=== PATIENT | female | born 1990 | race Caucasian/White ===

== ENCOUNTER 2017-01-21 11:55 | Emergency (ER) | payer OTHER ==
[2017-01-21 12:42] LABS: BASOPHILS 0.1 % (0-2); EOSINOPHILS 0.1 % (0-7); HEMATOCRIT 39.6 % (36.0-48.0); HEMOGLOBIN 13.4 g/dL (12-16); IMMATURE GRANULOCYTES 0.3 % (0-5); LYMPHOCYTES 7.4 % (15-50); MCH 31.2 pg (26.0-34.0); MCHC 33.8 g/dL (31.0-37.0); MCV 92.1 fL (80.0-100.0); MEAN PLATELET VOLUME 9.9 fL (7.4-10.4); MONOCYTES 5.6 % (2-11); NEUTROPHILS 86.5 % (40-80); PLATELET COUNT 198 10x3/uL (130-400); RDW 12.8 % (11.5-14.5); WBC 11.9 10x3/uL (4.8-10.8)
[2017-01-21 12:59] LABS: ALBUMIN 4.2 g/dL (3.4-5.0); ALKALINE PHOSPHATASE 41 U/L (46-116); ALT (SGPT) 15 U/L (10-68); BILIRUBIN - TOTAL 1.06 mg/dL (0.2-1.3); CALC OSMOLALITY 270 mosm/kg (275-300); CALCIUM 9.3 mg/dL (8.5-10.1); CARBON DIOXIDE 25.5 mmol/L (21.0-32.0); CHLORIDE - SERUM 101 mmol/L (98-107); CREATININE - SERUM 0.8 mg/dL (0.6-1.3); GLUCOSE 106 mg/dL (74-106); PROTEIN - SERUM 7.9 g/dL (6.4-8.2); SODIUM 136 mmol/L (136-145); UREA NITROGEN 11 mg/dL (7-18); eGFR NON AFRICAN AMERICAN > 90 mL/min (90-120)
[2017-01-21 13:52] LABS: AMYLASE - SERUM 55 U/L (25-115); LIPASE 183 U/L (73-393)
[2017-01-21 14:19] LABS: HCG URINE NEGATIVE (NEGATIVE)
[2017-01-21 14:53] LABS: APPEARANCE CLEAR (CLEAR); BILIRUBIN NEGATIVE (NEGATIVE); COLOR DK YELLOW (YELLOW); GLUCOSE NEGATIVE (NEGATIVE); KETONE NEGATIVE (NEGATIVE); NITRITE NEGATIVE (NEGATIVE); PROTEIN TRACE mg/dL (NEGATIVE); SPECIFIC GRAVITY 1.015 (1.005-1.020); UROBILINOGEN NORMAL (NORMAL)
[2017-01-21 14:54] LABS: BACTERIA FEW /hpf (NONE SEEN); EPITHELIAL CELLS 0-5 /hpf (0-5); RED CELLS - URINE 25-50 /hpf (0-5); WHITE CELLS - URINE 0-5 /hpf (0-5)
== END 2017-01-21 16:20 | disposition home or self-care (01) ==
LOC: D.ER 11:55
PROVIDERS: Emergency Medicine; Nurse Practitioner Family
DX: E86.0 Dehydration (principal); R53.83 Other fatigue

== ENCOUNTER → 2018-08-18 15:57 | Outpatient (CLI) | payer SELFPAY ==
[~2018-08-18 15:57] MED LIST: HYDROCODON-ACE1 EAC7 PO; MOTRIN600 MG PO; PRENAVITE1 TAB PO; UNISOM SLEEP AI25 MG PO; ZPAK PO
[2018-08-24 23:36] VITALS: BMI 23.8
== END | disposition home or self-care (01) ==
LOC: D.LDO 15:57
PROVIDERS: ATTEND Obstetrics & Gynecology
DX: O36.8190 Decreased fetal movements, unspecified trimester, not applicable or unspecified (principal); Z3A.00 Weeks of gestation of pregnancy not specified

== ENCOUNTER 2018-08-20 02:55 | Inpatient (IN) | payer OTHER ==
[2018-08-20 03:46] VITALS: BP 111/59; BMI 26.4
[2018-08-20] MEDS ORDERED: PRENAVITE1 TAB PO (04:22)
[2018-08-20] MEDS ORDERED: UNISOM SLEEP AI25 MG PO (04:26)
[2018-08-20 05:06] LABS: APPEARANCE CLEAR (CLEAR); BILIRUBIN NEGATIVE (NEGATIVE); COLOR YELLOW (YELLOW); GLUCOSE NEGATIVE (NEGATIVE); KETONE NEGATIVE (NEGATIVE); NITRITE NEGATIVE (NEGATIVE); PROTEIN NEGATIVE (NEGATIVE); UROBILINOGEN NORMAL (NORMAL)
[2018-08-20 05:07] LABS: HEMOGLOBIN 13.1 g/dL (12-16); MCH 30.9 pg (26.0-34.0); MCHC 33.6 g/dL (31.0-37.0); MEAN PLATELET VOLUME 11.7 fL (7.4-10.4); RBC 4.24 10x6/uL (4.00-5.40); RDW 13.7 % (11.5-14.5); WBC 9.3 10x3/uL (4.8-10.8)
[2018-08-20 05:14] LABS: UDS - AMPHET NEGATIVE QUAL (NEGATIVE); UDS - BARB NEGATIVE QUAL (NEGATIVE); UDS - BENZO NEGATIVE QUAL (NEGATIVE); UDS - COCAINE NEGATIVE QUAL (NEGATIVE); UDS - OPIATE NEGATIVE QUAL (NEGATIVE); UDS - PCP NEGATIVE QUAL (NEGATIVE); UDS - THC NEGATIVE QUAL (NEGATIVE)
[2018-08-20 17:04] LABS: BASOPHILS 0.1 % (0-2); EOSINOPHILS 0.1 % (0-7); HEMATOCRIT 32.5 % (36.0-48.0); HEMOGLOBIN 10.8 g/dL (12-16); IMMATURE GRANULOCYTES 0.4 % (0-5); LYMPHOCYTES 5.8 % (15-50); MCH 30.9 pg (26.0-34.0); MCHC 33.2 g/dL (31.0-37.0); MCV 92.9 fL (80.0-100.0); MEAN PLATELET VOLUME 11.2 fL (7.4-10.4); MONOCYTES 6.1 % (2-11); NEUTROPHILS 87.5 % (40-80); PLATELET COUNT 121 10x3/uL (130-400); RDW 13.7 % (11.5-14.5)
[2018-08-20 17:48] LABS: WBC 19.7 10x3/uL (4.8-10.8)
[2018-08-20 20:36] LABS: BASOPHILS 0.1 % (0-2); EOSINOPHILS 0.1 % (0-7); HEMATOCRIT 30.4 % (36.0-48.0); HEMOGLOBIN 10.1 g/dL (12-16); IMMATURE GRANULOCYTES 0.3 % (0-5); LYMPHOCYTES 8.8 % (15-50); MCH 30.7 pg (26.0-34.0); MCHC 33.2 g/dL (31.0-37.0); MCV 92.4 fL (80.0-100.0); MEAN PLATELET VOLUME 11.1 fL (7.4-10.4); MONOCYTES 6.4 % (2-11); NEUTROPHILS 84.3 % (40-80); PLATELET COUNT 129 10x3/uL (130-400); RBC 3.29 10x6/uL (4.00-5.40); RDW 13.6 % (11.5-14.5)
--- NOTE | 2018-08-20 20:47 | NUR ---
RN TO BEDSIDE TO ADMINISTER PAIN MEDICATION FOR PT C/O DISCOMFORT. PT IN SEMI FOWLERS POSITION INFANT. REQUESTS TO COMPLETE BEFORE TAKING PAIN MEDS, INSTRUCTED PT TO NOTIFY RN WHEN SHE COMPLETED AND WAS READY FOR PAIN MEDICATION, VERBALIZES UNDERSTANDING. CALL LIGHT WITHIN REACH. FAMILY MEMBERS REMAIN AT BEDSIDE. BED IN LOW POSITION WITH UPPER SIDE RAILS RAISED X2. CALL LIGHT AND PHONE WITHIN REACH. WILL CONTINUE TO MONITOR AND ASSIST PRN.
--- NOTE | 2018-08-20 21:06 | NUR ---
REPORTS THAT SHE IS FINISHED . C/O PAIN 11/27, VAGINAL "SORENESS." NORCO 10/325MG GIVEN PER ORDER AND PT REQUEST. DENIES ADDITIONAL NEEDS. IN GRANDMOTHER'S ARMS AT THIS TIME. PT RESTING IN BED. SCD'S ON BLE. BED IN LOW POSITION WITH UPPER SIDE RAILS RAISED X2. CALL LIGHT AND PHONE WITHIN REACH. WILL CONTINUE TO MONITOR AND ASSIST PRN.
--- NOTE | 2018-08-20 23:20 | NUR ---
PT MOVED TO ROOM 1273 FOR CARE.
--- NOTE | 2018-08-20 23:43 | NUR ---
PTS IV FLUSHED WITH 10ML NS AT THIS TIME AND SALINE LOCKED.
[2018-08-21] VITALS (15 sets, daily range): BP systolic 93–160; BP diastolic 48–74
--- NOTE | 2018-08-21 02:50 | NUR ---
PATIENT LYING IN BED, REQUESTING HER PHONE ACCOUNTING SOFTWARE SPECIALIST. PT HANDED HER PURSE AND ACCOUNTING SOFTWARE SPECIALIST PLUGGED IN BEHIND THE BED PER REQUEST. PERICARE PERFORMED AT THIS TIME, PAD WEIGHED AT 32 GRAMS. FRESH ICE PACK PLACED. ICE WATER PROVIDED PER REQUEST. CROFT EMPTIED, SEE I&O. PT DENIES OTHER NEEDS, BED REMAINS LOCKED IN LOW POSITION, SIDE RAILS UPX2, CALL ANN AND TRAY TABLE IN REACH AND FAMILY REMAINS AT BEDSIDE FOR SUPPORT.
--- NOTE | 2018-08-21 02:50 | NUR ---
massaged pts fundus, noted to be midline,firm,u-1
--- NOTE | 2018-08-21 03:45 | NUR ---
PT ASSISTED WITH BY MOJGANRN
--- NOTE | 2018-08-21 04:12 | NUR ---
PTS MOTHER IN LAW TO DESK REQUESTING MAGALY TO COME HELP THEM WITH THE BABY. MAGALY CALLED IN THE NURSERY AND INFORMED OF PT REQUEST.
[2018-08-21 06:12] LABS: RAPID PLASMA REAGIN Non Reactive (Non Reactive)
[2018-08-21 06:27] LABS: BASOPHILS 0.1 % (0-2); EOSINOPHILS 0.9 % (0-7); HEMATOCRIT 31.1 % (36.0-48.0); HEMOGLOBIN 10.4 g/dL (12-16); IMMATURE GRANULOCYTES 0.4 % (0-5); LYMPHOCYTES 19.3 % (15-50); MCH 30.5 pg (26.0-34.0); MCHC 33.4 g/dL (31.0-37.0); MCV 91.2 fL (80.0-100.0); MEAN PLATELET VOLUME 11.3 fL (7.4-10.4); MONOCYTES 7.5 % (2-11); NEUTROPHILS 71.8 % (40-80); PLATELET COUNT 110 10x3/uL (130-400); RBC 3.41 10x6/uL (4.00-5.40); RDW 14.7 % (11.5-14.5); WBC 14.1 10x3/uL (4.8-10.8)
--- NOTE | 2018-08-21 06:30 | NUR ---
PATIENTS PAD CHANGED AND WEIGHED AT 32 GRAMS. CROFT CATHETER WITH 350 ML NOTED IN THE CHAMBER. PT SITTING UP IN BED, INFANT IN GRANDMOTHERS ARMS. NO NEEDS IDENTIFIED AT THIS TIME.
--- NOTE | 2018-08-21 07:15 | NUR ---
DR DIEHL IN TO SEE PATIENT AT THIS TIME, VAGINAL PACKING REMOVED, FUNDAL MASSAGE DONE. PT CONTINUES TO HAVE VAGINAL BLEEDING, ORDER NOTED TO OBTAIN CONSENT AND CALL OR CREW FOR REPAIR.
--- NOTE | 2018-08-21 07:18 | NUR ---
CELINA, MORTAR MAKER NOTIFIED OF NEED FOR STAT NEED FOR OR CREW AND THAT PT WAS ACTIVELY BLEEDING. REPORTS THAT SHE WILL CALL CREW IN.
--- NOTE | 2018-08-21 07:22 | NUR ---
consents for repair vag laceration signed per pt- states understanding.
--- NOTE | 2018-08-21 07:27 | NUR ---
PADMA STORM SASH MAKER NOTIFIED OF PT ACTIVELY BLEEDING AND NEED FOR SURGERY NOW.
--- NOTE | 2018-08-21 07:35 | NUR ---
2nd iv started lt wrist per marguerite hernandez rn. unit prbc B+- donor number-[id number] HUNG AND INFUSING INTO LT WRIST AT 75CC/HR PER PUMP.
--- NOTE | 2018-08-21 07:38 | NUR ---
no blood on pad at this time.
--- NOTE | 2018-08-21 07:41 | NUR ---
pt states is stinging- vag area. verbal responses appro to questions. poc discussed with pt and family.
--- NOTE | 2018-08-21 07:45 | NUR ---
unit prbc rate increased to 300cchr/pump.
--- NOTE | 2018-08-21 07:47 | NUR ---
raudel majano in room talking with ptMaynor
--- NOTE | 2018-08-21 08:02 | NUR ---
no s/s of transfusion noted.
--- NOTE | 2018-08-21 08:12 | NUR ---
250cc emptied from macias cath.
--- NOTE | 2018-08-21 08:15 | NUR ---
suellen starks crna in room along with rn. meds given iv per suellen starks crna.
--- NOTE | 2018-08-21 08:20 | NUR ---
to or via bed.
--- NOTE | 2018-08-21 10:02 | NUR ---
returns to room via bed. report received from rr nurse. pt drowsy but will respond to persistent verbal stimuli. states is tired. iv infusing into rt wrist lr at 125cc/hr. saline lock to lt wrist. vs done. abd soft with fundus uu. no lochia noted at this time. jann pad placed. macias cath intact clear urine return. scd's on legs returned to pump. family at bedside.
--- NOTE | 2018-08-21 10:29 | NUR ---
sips of ice water given per request. pt coughs and co sore throat. explained that had to intubate for general anesthesia.
--- NOTE | 2018-08-21 10:47 | NUR ---
spoke with suellne starks crna about pt feeling like she is aspirating - informed not appear any resp distress and o2 sat 99 to 100%. order for ice chips. suellen starks crna states will be here to see pt as soon as he is finished with case.
--- NOTE | 2018-08-21 10:56 | NUR ---
no lochia noted on padMaynor starks crna in room talking to pt and family.
--- NOTE | 2018-08-21 11:10 | NUR ---
RINGS CALL LIGHT- PT REQUESTING A COLD DESSERT. EXPLAINED THAT ANESTHESIA WANTS HER TO BE SWOLLING ICE CHIPS WELL. PT STATES SHE IS HUNGRY. ICE CREAM GIVEN PER PT AND FAMILY REQUEST.
--- NOTE | 2018-08-21 11:15 | NUR ---
ice cap to perineum - no lochia -bleeding on jann pad.
--- NOTE | 2018-08-21 11:30 | NUR ---
sitting up in bed eating ice cream. states throat feels a little better.
--- NOTE | 2018-08-21 11:47 | NUR ---
lab here for blood draw.
[2018-08-21 11:53] LABS: BASOPHILS 0.1 % (0-2); EOSINOPHILS 0.3 % (0-7); HEMATOCRIT 32.2 % (36.0-48.0); HEMOGLOBIN 10.8 g/dL (12-16); IMMATURE GRANULOCYTES 0.4 % (0-5); LYMPHOCYTES 9.9 % (15-50); MCH 30.4 pg (26.0-34.0); MCHC 33.5 g/dL (31.0-37.0); MCV 90.7 fL (80.0-100.0); MEAN PLATELET VOLUME 11.1 fL (7.4-10.4); MONOCYTES 3.7 % (2-11); NEUTROPHILS 85.6 % (40-80); PLATELET COUNT 107 10x3/uL (130-400); RBC 3.55 10x6/uL (4.00-5.40); RDW 14.7 % (11.5-14.5); WBC 14.5 10x3/uL (4.8-10.8)
--- NOTE | 2018-08-21 11:59 | NUR ---
sitting up in bed putting on makeup- states she is feeling better. jann pad changed- small clearish pale yellow fluid noted on pad- no blood noted.
--- NOTE | 2018-08-21 12:15 | NUR ---
results of [facility] phoned to dr bolden.
--- NOTE | 2018-08-21 12:28 | NUR ---
lab here. bp rechecked. pt states that the cuff kept pumping up then repumping from last bp taken. recheck bp 116/56
--- NOTE | 2018-08-21 12:31 | NUR ---
eating reg diet- states is doing ok- denies needs.
--- NOTE | 2018-08-21 12:50 | NUR ---
ate 70% of reg diet- tolerated well.
--- NOTE | 2018-08-21 12:50 | NUR ---
rings call light- requesting pain medication- rates pain a 2-3 on scale of 0-10. med given.
[2018-08-21 12:52] LABS: APTT 30.6 SECONDS (22.8-39.4); PROTIME 12.7 SECONDS (11.6-15.0)
--- NOTE | 2018-08-21 13:21 | NUR ---
rings call light- states that feels like she needs to have a bm. no lochia noted.pt states wants to walk to bathroom. pt ambulates to bathroom- tolerated well. no bm. perineal area cleansed- returns to bed.
--- NOTE | 2018-08-21 13:35 | NUR ---
results of pt and ptt to dr bolden- new orders received.
--- NOTE | 2018-08-21 14:00 | NUR ---
CROFT CATH REMOVED POST BULB DEFLATED WITH 1500CC URINE IN BAG. PT REQUESTS TO GET UP TO BATHROOM- STATES THAT FEELS LIKE NEEDS TO HAVE BM AND JUST WANTS TO SIT ON COMMODE FOR A BIT.
--- NOTE | 2018-08-21 14:10 | NUR ---
PT STATES THAT SHE IS DOING FINE IN BATHROOM AND WANTS SOME PRIVACY IN ROOM. PT STATES THAT SHE WILL PULL BATHROOM CORD IF NEEDS NURSE.
--- NOTE | 2018-08-21 14:30 | NUR ---
PT STATES HAS PASSED SOME GAS. PERICARE DONE USING BETADINE AND WARM WATER- WHILE USING WARM WATER AND BETADINE- PT VOIDS MOD AMT. PT INSTRUCTED ON DERMAPLAST AND TUCKS PADS. GOWN CHANGED. PT STATES SHE DOES NOT WANT TO SHOWER AT THIS TIME. AMBULATES TO BED. STATES SHE AND WOULD LIKE TO REST. BABY TO NURSERY- LIGHTS IN ROOM DIMMED.
--- NOTE | 2018-08-21 15:37 | NUR ---
ENTERED ROOM- SITTING UP IN BED LOOKING AT LAPTOP. VS DONE- BABY BROUGHT TO ROOM.
--- NOTE | 2018-08-21 17:29 | NUR ---
sitting up in bed eating dinner. denies needs. denies pain at this time. scant lochia noted on pad. at bedside.
--- NOTE | 2018-08-21 18:21 | NUR ---
UP TO BATHROOM- 1000CC URINE. PERICARE DONE. TOLERATED WELL.
--- NOTE | 2018-08-21 19:19 | NUR ---
PATIENT RECEIVED SITTING UP IN BED, AT BEDSIDE IN OPEN CRIB. JULIA DEXTER COMPLETING HER ASSESSMENT. PT ASSESSMENT COMPLETED AT THIS TIME. SEE FLOWSHEET. VS WNL, FUNDUS FIRM/ML/U-1, BLEEDING SCANT, PERINEUM SWOLLEN BUT PT DECLINES ICE PACK. MOTRIN ADMINISTERED SEE EMAR. PT WITH TWO SALINE LOCKS, BOTH FLUSHED WITH 5 ML NS WITHOUT INCIDENT, COLACE AND CHLORASEPTIC SPRAY PROVIDED PER MD ORDERS. BED REMAINS LOCKED IN LOW POSITION, SIDE RAILS UPX2, CALL ANN AND TRAY TABLE IN REACH. FRESH ICE WATER PROVIDED AND PT DENIES OTHER NEEDS AT THIS TIME. FAMILY REMAINS AT BEDSIDE FOR SUPPORT. WILL CONTINUE TO MONITOR.
--- NOTE | 2018-08-21 21:30 | NUR ---
PT SITTING UP IN BED HOLDING , DENIES PAIN OR NEEDS AT THIS TIME.
--- NOTE | 2018-08-21 22:12 | NUR ---
INFANT IN HIGH FOWLERS POSITION. STATES PAIN 04/29, DENIES NEED FOR INTERVENTION. FAN PROVIDED PER REQUEST. DENIES ADDITIONAL NEEDS. FAMILY MEMBERS REMAIN AT BEDSIDE, SUPPORTIVE AND ATTENTIVE TO PT AND NEEDS. BED IN LOW POSITION WITH UPPER SIDE RAILS RAISED X2. CALL LIGHT AND PHONE WITHIN REACH. WILL CONTINUE TO MONITOR AND ASSIST PRN.
--- NOTE | 2018-08-22 00:11 | NUR ---
SITTING IN HIGH FOWLERS POSITION IN BED CONVERSING AND LAUGHING WITH FAMILY. ROOM TEMP DECREASED PER PT REQUEST. SPOUSE AT BEDSIDE CHANGING INFANT'S DIAPER. ICE WATER AND SPRITE PROVIDED PER PT REQUEST. DENIES PAIN AND ADDITIONAL NEEDS. BED IN LOW POSITION WITH UPPER SIDE RAILS RAISED X2. CALL LIGHT AND PHONE WITHIN REACH. WILL CONTINUE TO MONITOR AND ASSIST PRN.
--- NOTE | 2018-08-22 00:53 | NUR ---
CALLS VIA CALL LIGHT. REQUESTS BOTTLE FOR INFANT, PROVIDED PER REQUEST. CONCERNED THAT HER THROAT IS SORE AND SHE IS "COUGHING OCCASIONALLY." STATES THAT SHE HAS NOT USED CHLOROSEPTIC SPRAY, ENCOURAGED HER TO USE SPRAY ORDERED, STATES THAT SHE WILL TRY IT. EDUCATED THAT LONG COUGH ISN'T PRODUCTIVE IT IS NORMAL TO COUGH FOLLOWING PROCEDURES. VERBALIZES UNDERSTANDING. TEMP CHECKED PER REQUEST, 98.4 ORALLY. BED IN LOW POSITION WITH UPPER SIDE RAILS RAISED X2. CALL LIGHT AND PHONE WITHIN REACH.
--- NOTE | 2018-08-22 02:54 | NUR ---
RESTING QUIETLY ON LEFT SIDE. RESPIRATIONS REGULAR AND UNLABORED, NO S/S OF DISTRESS NOTED. BED IN LOW POSITION WITH UPPER SIDE RAILS RAISED X2. CALL LIGHT AND PHONE WITHIN REACH. WILL CONTINUE TO MONITOR AND ASSIST PRN.
--- NOTE | 2018-08-22 05:03 | NUR ---
SITTING IN HIGH FOWLERS POSITION. REPORTS THAT SHE JUST COMPLETED . REQUESTS MOTRIN, PAIN 04/29, PERINEAL AND VAGINAL "SORENESS." REPORTS THAT SHE IS PERFORMING PERICARE WITH EACH VOID USING PERIBOTTLE AND BETADINE WASH AND TUX PADS. ICE WATER PROVIDED. DENIES ADDITIONAL NEEDS. UP TO VOID. BED IN LOW POSITION WITH UPPER SIDE RAILS RAISED X2. CALL LIGHT AND PHONE WITHIN REACH. WILL CONTINUE TO MONITOR AND ASSIST PRN.
--- NOTE | 2018-08-22 05:53 | NUR ---
DR. DIEHL AT BEDSIDE DISCUSSING PLAN OF CARE AND DISCHARGE INSTRUCTIONS WITH PT.
--- NOTE | 2018-08-22 06:03 | NUR ---
DENIES PAIN. L WRIST PIV REMOVED, TIP INTACT, BANDAID APPLIED. R WRIST PIV REMOVED, TIP INTACT, BANDAID PLACED OVER INSERTION SITE. DENIES NEEDS AT THIS TIME. QUESTIONS REGARDING HOW TO SCHEDULE FOLLOW UP APPOINTMENT WITH [facility] ANSWERED. BED IN LOW POSITION WITH UPPER SIDE RAILS RAISED X2. CALL LIGHT AND PHONE WITHIN REACH. WILL CONTINUE TO MONITOR AND ASSIST PRN.
[2018-08-22 07:18] VITALS: BP 108/59
--- NOTE | 2018-08-22 07:18 | NUR ---
RECEIVED PT SITTING UP IN BED. AWAKE. AAO X 3. VSS. HRRR WITHOUT AUDIBLE MURMUR. BBS CLEAR. BS X 4. ABDOMEN SOFT/NON-DISTENDED. FUNDUS FIRM AT U/2. RUBRA LOCHIA SCANT AMT. NO CLOTS OR HEAVY BLEEDING PER PT STATES. NEG HOMANS' SIGN. PPP. NO EDEMA NOTED TO BLE. SLIGHT EDEMA NOTED TO LABIA/PERINEUM. PT DENIES C/O PAIN OR NEEDS. SR UP X2. CALL LIGHT IN REACH.
--- NOTE | 2018-08-22 09:00 | NUR ---
PT LYING SUPINE IN BED. EYES CLOSED. RESP NON-LABORED. PT NOT DISTURBED TO ALLOW FOR REST.
--- NOTE | 2018-08-22 10:30 | NUR ---
PT AMBULATORY IN ROOM. PREPARING FOR DISCHARGE. DENIES C/O OR NEEDS.
[2018-08-22] MEDS ORDERED: ZPAK PO (10:57)
[2018-08-22] MEDS ORDERED: HYDROCODON-ACE1 EAC7 PO (10:57)
[2018-08-22] MEDS ORDERED: MOTRIN600 MG PO (10:58)
--- NOTE | 2018-08-22 11:50 | NUR ---
DISCHARGE INSTRUCTIONS GIVEN TO PT. PT VERALIZES UNDERSTANDING OF ALL INSTRUCTIONS. COPIES GIVEN TO PT. RX FOR Z-PACK, NORCO 5/325 AND MOTRIN 600 GIVEN TO PT. ALL QUESTIONS ANSWERED. PT PREPARES FOR DISCHARGE.
--- NOTE | 2018-08-22 12:45 | NUR ---
PT READY FOR DISCHARGE. DISCHARGED IN STABLE CONDITION VIA WHEELCHAIR TO PRIVATE VEHICLE. SECURED PER FAMILY IN CARSEAT.
--- NOTE | 2018-08-31 13:55 | OP ---
PATIENT NAME: ZHENG RUBIO MEDICAL RECORD: [id number] :90 LOCATION:[id number] ADMISSION DATE:08/20/18 SURGEON: TOBIAS RIOS MD DATE OF OPERATION: 08/21/2018 PREOPERATIVE DIAGNOSES: 1. Vaginal lacerations status post vaginal delivery. 2. Hemorrhage. POSTOPERATIVE DIAGNOSES: 1. Vaginal lacerations status post vaginal delivery. 2. Hemorrhage. PROCEDURE: Repair of vaginal lacerations. SURGEON: Tobias Rios MD ANESTHESIA: General via LMA. INTRAVENOUS FLUIDS: Per anesthesia record. ESTIMATED BLOOD LOSS: Approximately 150 cc during the surgical procedure. SPECIMENS: None. FINDINGS: Multiple areas of vaginal laceration extending all the way from the vaginal introitus to the fornix of the posterior cervix. COMPLICATIONS: None apparent. PROCEDURE IN DETAIL: The patient was taken to the operating room where regional anesthesia using the epidural catheter was found to be inadequate and was converted to a general case. The patient was then prepped and draped in normal sterile fashion in the dorsal lithotomy position in the [facility]. A Bustillos catheter was in place and draining freely. At this point, attention was turned to the vagina, where careful survey of the previous day's repair was performed. The perineal repair was found to be intact and hemostatic. Attention was then turned to the vagina where multiple areas of bleeding were noted and repaired with [id number] sutures using a 2-0 Vicryl. Of note, the vaginal mucosa was noted to be detached and cranially displaced and multiple attempts were made using the 2-0 Vicryl sutures to reapproximate the vaginal mucosa with the introitus. After several areas were oversewn, good hemostasis was noted. Monsel solution was placed under the surgical sites. The patient tolerated the procedure well and was found to be hemostatic upon ending the case. The patient was transferred to postanesthesia recovery stable without incident. TRANSINT:[id number] Voice Confirmation ID: [id number] DOCUMENT ID: [id number] OPERATIVE REPORT [id number] JOANNEZHENG SHANITA, TOBIAS Sheth MD at 1355 CC: [id number] DICTATION DATE: 08/27/18 1328 TRANSPLANT WORKER: 08/27/18 1435 DIS IN 08/22/18 [address] [place] [address]
--- NOTE | 2018-12-08 11:41 | DS ---
PATIENT:ZHENG RUBIO :90 MEDICAL RECORD: [id number] DISCHARGE SUMMARY ADMISSION DATE: 08/20/18 DISCHARGE DATE: 08/22/18 HOSPITAL COURSE: The patient was admitted on 08/20/2018. HISTORY OF PRESENT ILLNESS: A 28-year-old G1, P0 at 38 weeks and 4 days, admitted at term with spontaneous rupture of membranes. The patient noted to be B positive, group B strep negative, and rubella immune. PAST MEDICAL HISTORY: Significant for asthma. PAST SURGICAL HISTORY: Significant for dental surgery. ALLERGIES: The patient reported no allergies. MEDICATIONS: Included vitamins and Unisom. FAMILY HISTORY: The patient reported no significant family history. SOCIAL HISTORY: The patient reported social history negative times 3. PHYSICAL EXAMINATION: On initial assessment, vital signs are stable. The patient was normotensive and afebrile. LUNGS: Clear to auscultation. CARDIOVASCULAR: Regular rate and rhythm. PELVIC: Uterus was appropriately sized and nontender. EXTREMITIES: Lower extremities were free of Homans sign, erythema, or swelling. wellbeing was reassuring with category 1 tracing. The patient noted to be shi. LABORATORY DATA: Admission hemoglobin was found to be 13.1. ASSESSMENT AND PLAN: 1. Admission, term intrauterine at 38 weeks. 2. Spontaneous rupture of membranes. 3. care in [place]. 4. Mild intermittent asthma. Pitocin induction of labor was started. Antibiotics were given for initial unknown group B strep status, but were stopped. records were obtained. The patient was found to be group B strep negative. The patient progressed to the second stage of labor and had a normal spontaneous vaginal delivery with severe vaginal lacerations of hemorrhage approximately 800 cc. The delivery note is as on the chart. Following extensive repair, a packing was placed into the vagina. Later during day #0, I was called for approximately 300 cc of blood loss from the vaginal pack on the exam. No blood was noted to be actively coming from the pack. Blood loss that time was calculated to be approximately 1200 cc including delivery. A CBC was sent and blood was placed on hold. Vital signs at that time were stable. The patient was counseled at that time for the possible need for surgical intervention to correct the vaginal lacerations. The patient continued to have bleeding and the pack was removed and areas of active bleeding were noted in the vagina. At that point, the patient was taken to the operating room where repair of vaginal lacerations were performed under DISCHARGE SUMMARY REPORT [id number] ZHENG RUBIO anesthesia with good hemostasis noted. A second packing was placed. Blood loss at that point from delivery was found to be approximately 1500 cc. The patient was transfused 2 units of packed red blood cells and remained hemodynamically stable at all times. Following the repair approximately 15 minutes, the site was found to be hemostatic. The patient transported back to labor and delivery. The patient did well overnight on and postoperative day #1. On the morning of post day #1, the pack had been removed in the operating room as no bleeding was noted. Minimal lochia was noted overnight. Vital signs remained stable and hemoglobin was found to be appropriate for blood loss and transfusion. Bustillos catheter had been left in overnight and the patient had been on a clear liquid diet. The patient was advanced to p.o. pain meds and general diet at that time. Bustillos catheter was removed and ambulation begun. The patient continued to improve on postop/ day #1. On the morning of day #2, the bleeding still remained scant from the surgical correction site. Blood counts found to be stable and the patient is discharged home with plans to follow up the next week for vaginal inspection. TRANSINT:[id number] Voice Confirmation ID: [id number] DOCUMENT ID: [id number] MARTIN DIEHL MD at 1141 CC: [id number] DICTATION DATE: 12/05/18 0929 HOSPITALITY DIRECTOR: 12/05/18 2157 DIS IN 08/22/18 [address] [place] [address]
== END 2018-08-22 12:45 | disposition home or self-care (01) | DRG 768 ==
LOC: D.LDO 02:55 → D.LD 03:21
PROVIDERS: Obstetrics & Gynecology; ADMIT Obstetrics & Gynecology; ATTEND Obstetrics & Gynecology
PROC: 10E0XZZ Delivery of Products of Conception, External Approach (ICD-10-PCS; principal; 2018-08-20)
PROC: 0KQM0ZZ Repair Perineum Muscle, Open Approach (ICD-10-PCS; 2018-08-20)
PROC: 0W3R7ZZ Control Bleeding in Genitourinary Tract, Via Natural or Artificial Opening (ICD-10-PCS; 2018-08-21)
DX: O71.4 Obstetric high vaginal laceration alone (principal); Z37.0 Single live birth; O72.1 Other immediate postpartum hemorrhage; Z3A.38 38 weeks gestation of pregnancy

== ENCOUNTER 2018-08-24 23:32 | Emergency (ER) | payer OTHER ==
[~2018-08-24] VITALS: Ht 157.5 cm; Wt 59.1 kg
[2018-08-24 23:36] VITALS: Ht 157.5 cm; Wt 59.1 kg
[2018-08-25 00:02] LABS: BASOPHILS 0.1 % (0-2); EOSINOPHILS 2.8 % (0-7); HEMATOCRIT 34.3 % (36.0-48.0); HEMOGLOBIN 11.6 g/dL (12-16); IMMATURE GRANULOCYTES 0.3 % (0-5); LYMPHOCYTES 30.9 % (15-50); MCH 30.6 pg (26.0-34.0); MCHC 33.8 g/dL (31.0-37.0); MCV 90.5 fL (80.0-100.0); MEAN PLATELET VOLUME 9.6 fL (7.4-10.4); MONOCYTES 6.6 % (2-11); NEUTROPHILS 59.3 % (40-80); RBC 3.79 10x6/uL (4.00-5.40); WBC 8.8 10x3/uL (4.8-10.8)
[2018-08-25 00:11] LABS: PLATELET COUNT 210 10x3/uL (130-400)
[2018-08-25 00:18] LABS: ALBUMIN 2.7 g/dL (3.4-5.0); ALKALINE PHOSPHATASE 95 U/L (46-116); ALT (SGPT) 37 U/L (10-68); BILIRUBIN - TOTAL 0.51 mg/dL (0.2-1.3); CALC OSMOLALITY 275 mosm/kg (275-300); CALCIUM 8.6 mg/dL (8.5-10.1); CARBON DIOXIDE 23.3 mmol/L (21.0-32.0); CHLORIDE - SERUM 104 mmol/L (98-107); CREATININE - SERUM 0.5 mg/dL (0.6-1.3); GLUCOSE 110 mg/dL (74-106); POTASSIUM - SERUM 3.7 mmol/L (3.5-5.1); PROTEIN - SERUM 6.7 g/dL (6.4-8.2); SODIUM 138 mmol/L (136-145); UREA NITROGEN 9 mg/dL (7-18); eGFR NON AFRICAN AMERICAN > 90 mL/min (90-120)
[2018-08-25 01:31] VITALS: BP 125/74
== END 2018-08-25 01:42 | disposition home or self-care (01) ==
LOC: D.ER 23:32
PROVIDERS: Family Medicine
DX: O90.89 Other complications of the puerperium, not elsewhere classified (principal); N93.9 Abnormal uterine and vaginal bleeding, unspecified

== ENCOUNTER 2018-08-30 00:57 | Observation (INO) | payer OTHER ==
[~2018-08-30] VITALS: Ht 157.5 cm; Wt 56.8 kg
[2018-08-30 01:26] LABS: BASOPHILS 0.1 % (0-2); HEMATOCRIT 37.1 % (36.0-48.0); HEMOGLOBIN 12.5 g/dL (12-16); IMMATURE GRANULOCYTES 0.2 % (0-5); LYMPHOCYTES 37.1 % (15-50); MCH 30.6 pg (26.0-34.0); MCHC 33.7 g/dL (31.0-37.0); MCV 90.9 fL (80.0-100.0); MEAN PLATELET VOLUME 9.2 fL (7.4-10.4); MONOCYTES 9.6 % (2-11); PLATELET COUNT 244 10x3/uL (130-400); RBC 4.08 10x6/uL (4.00-5.40); RDW 13.6 % (11.5-14.5); WBC 8.1 10x3/uL (4.8-10.8)
[2018-08-30 01:30] VITALS: BP 93/61
[2018-08-30 01:40] LABS: ALKALINE PHOSPHATASE 92 U/L (46-116); ALT (SGPT) 20 U/L (10-68); BILIRUBIN - TOTAL 0.35 mg/dL (0.2-1.3); CALC OSMOLALITY 272 mosm/kg (275-300); CALCIUM 8.4 mg/dL (8.5-10.1); CARBON DIOXIDE 24.4 mmol/L (21.0-32.0); CHLORIDE - SERUM 102 mmol/L (98-107); CREATININE - SERUM 0.5 mg/dL (0.6-1.3); GLUCOSE 90 mg/dL (74-106); POTASSIUM - SERUM 3.9 mmol/L (3.5-5.1); PROTEIN - SERUM 6.9 g/dL (6.4-8.2); SODIUM 137 mmol/L (136-145); UREA NITROGEN 11 mg/dL (7-18); eGFR NON AFRICAN AMERICAN > 90 mL/min (90-120)
--- NOTE | 2018-08-30 01:50 | NUR ---
PT MOVED TO ROOM WITH PELVIC BED FOR EXAM.
[2018-08-30 02:00] VITALS: BP 93/61
--- NOTE | 2018-08-30 02:05 | NUR ---
RN ASSISTED EDP DOWNEN IN PELVIC EXAM, BLEEDING EVIDENT FROM PRIOR TEAR R/T CHILDBIRTH. SPECULUM NOT USED. PAD REPLACED ON PT. PT RESTING ON BED. SPOUSE AT BEDSIDE.
--- NOTE | 2018-08-30 02:35 | NUR ---
PT TRANSPORTED VIA STRETCHER TO LABOR AND DELIVERY.
--- NOTE | 2018-08-30 02:47 | NUR ---
PT REC'D FROM ER VIA STRETCHER AT THIS TIME. PT WITH SALINE LOCK TO THE LEFT AC. SITE CLEAR AT THIS TIME. LUNGS CLEAR. BS+. NO ACUTE DISTRESS NOTED. Teddy MANCILLA RN
--- NOTE | 2018-08-30 03:20 | NUR ---
PT TO SURGERY VIA BED. Teddy MANCILLA RN
[2018-08-30 04:59] VITALS: BP 115/61
--- NOTE | 2018-08-30 04:59 | NUR ---
PT REC'D FROM SURGERY AT THIS TIME. VSS. IV OF LF PLACED ON PUMP AT 125 ML/HR. SITE CLEAR AND PATENT TO THE LEFT AC. ICE PACK TO THE PERINEUM AT THIS TIME. SCDS IN PLACE AT THIS TIME. NO DISTRESS NOTED. EVETTE LIGHT IN PT REACH. Teddy MANCILLA RN
--- NOTE | 2018-08-30 06:20 | NUR ---
TORADOL 30 MG GIVEN IVP PER MD ORDER. Teddy MANCILLA RN
[2018-08-30 06:26] VITALS: BP 120/68; Ht 157.5 cm; Wt 56.8 kg
[2018-08-30 07:43] VITALS: BP 106/66
--- NOTE | 2018-08-30 07:52 | NUR ---
ASSESSMENT DONE. PT ASLEEP WHEN ENTED ROOM. AWAKENS EASILY AND VERBAL RESPONSES APPRO TO QUESTIONS. DENIES NEEDS. ABD SOFT. SCANT LOCHIA NOTED ON ALLISON PAD. REG DIET SERVED.
--- NOTE | 2018-08-30 08:03 | NUR ---
STATES NEEDS TO USE BATHROOM. IV SALINE LOCKED. AMBULATES TO BATHROOM. VOIDED 900CC YELLOWISH URINE. TOLERATES AMBULATION WELL.
--- NOTE | 2018-08-30 09:00 | NUR ---
CALLED TO ROOM, PT HAS BREAST MILK READY TO GO TO [place], SHE HAS EACH CONTAINER LABELED WITH NAME, DATE AND TIME. DENIES PAIN OR DISCOMFORT, HAS EATEN OVER 50% OF BREAKFAST AND DENIES NAUSEA. SIDE RAILS UP X 2 WITH CALL LIGHT IN REACH.
--- NOTE | 2018-08-30 09:45 | NUR ---
CALLED TO ROOM, PT REPORTS THAT SHE JUST WENT TO BATHROOM. 400ML CLEAR URINE NOTED TO COLLECTION HAT. PT CONTINUE TO DENY PAIN AND SCANT BLEEDING NOTED TO ALLISON PAD. WILL PREPARE FOR DISCHARGE.
--- NOTE | 2018-08-30 10:30 | NUR ---
VERBAL AND WRITTEN DISCHARGE INSTRUCTIONS GONE OVER, PT STATES HER UNDERSTANDING AND DENIES QUESTIONS OR CONCERNS. SHE IS PROVIDED WITH WRITTEN SCRIPTS FOR PHENERGAN DM AND TYLENOL #3. TORDAL 30MG GIVEN SIVP ORDERED. AFTER MED GIVEN SALINE LOCK REMOVED FROM L AC WITH CATH INTACT. PT UP TO DRESS AND WILL CALL WHEN READY FOR WHEELCHAIR.
[2018-08-30] MEDS ORDERED: PHENERGAN DM SYR5 ML PO (10:42)
[2018-08-30] MEDS ORDERED: TYLENOL W/CODEI1 TAB PO (10:43)
--- NOTE | 2018-08-30 11:15 | NUR ---
Pt calls out they are ready to leave, taken out by wheelchair. Home by private car with spouse.
--- NOTE | 2018-08-30 11:37 | OP ---
PATIENT NAME: ZHENG RUBIO MEDICAL RECORD: [id number] :90 LOCATION:[id number] ADMISSION DATE:08/30/18 SURGEON: TAJ MARTINEZ MD DATE OF OPERATION: 08/30/2018 PREOPERATIVE DIAGNOSIS: Obstetrical laceration. POSTOPERATIVE DIAGNOSIS: Obstetrical laceration. PROCEDURE: Repair of vaginal laceration. SURGEON: Taj Martinez MD SEARCH MARKETING ANALYST: Sergei Mckinney. ANESTHESIA: General. FINDINGS: Active bleeding from laceration at the 4 o'clock position just inside the introitus. There is some bleeding from the perineal body. SPECIMENS REMOVED: None. SPECIMEN DISPOSITION: None applicable. ESTIMATED BLOOD LOSS: Less than or equal to 100 cc. FLUIDS: 700 cc of lactated Ringer's. URINE OUTPUT: Quantity sufficient void prior to this procedure. COMPLICATIONS: None. DRAINS: None. INDICATIONS: The patient is a 28-year-old G1, para 1 with a recent history of vaginal delivery with obstetrical laceration. The patient received repair and packing. The patient has been recovering well until today where she had had an episode of coughing and felt as if the stitch had torn. The patient has active bleeding as she presents to the Emergency Room. DESCRIPTION OF PROCEDURE: After informed consent was assured, the patient was taken to the operating room, anesthetic was obtained. The patient was placed in Stanley stirrups and prepped and draped in the usual sterile fashion. A Jarvis retractor was gently inserted into the anterior vault, deflected up. Posteriorly, the vault was inspected and irrigated. The laceration on the patient's left hand side is identified. Using 3-0 chromic, a running stitch was placed over this and secured with adequate hemostasis. The perineal body was inspected. There were 2 areas of swelling where active bleeding was noted. Horizontal mattress stitches were placed on the perineal body and 1 interrupted stitch for adequate hemostasis. The vaginal vault was irrigated again and the irrigant removed. Visual inspection reveals adequate hemostasis throughout. Ice pack was applied to the perineum. She is sent to the recovery area in stable condition. OPERATIVE REPORT [id number] ZHENG RUBIO TRANSINT:[id number] Voice Confirmation ID: [id number] DOCUMENT ID: [id number] TAJ MARTINEZ MD at 1137 CC: [id number] DICTATION DATE: 08/30/18 0424 BUTTER WRAPPER: 08/30/[address] [facility] [address] [id number]
== END 2018-08-30 11:15 | disposition home or self-care (01) ==
LOC: D.ER 00:57 → D.LD 02:14 → OBSVTIME 02:14 → D.LD 11:15
PROVIDERS: Family Medicine; ADMIT Obstetrics & Gynecology; ATTEND Obstetrics & Gynecology
DX: O90.1 Disruption of perineal obstetric wound (principal)